=== PATIENT | female | born 1960 | race Hispanic/Latino ===

== ENCOUNTER 2016-04-25 15:24 | Emergency (ER) | payer OTHER, MEDICAID ==
[2016-04-25 15:39] VITALS: BP 138/75
[2016-04-25] MEDS ORDERED: CLEOCIN PO ONE (17:13)
[2016-04-25] MEDS ORDERED: BOOSTRIX IM ONE (17:13)
--- NOTE | 2016-04-25 17:13 | Emergency Department Report ---
ED Lower Extremity HPI - General Chief Complaint: Wound/Laceration Stated Complaint: INFECTED TOE/PARAPLEGIA Time Seen by Provider: 04/25/16 17:02 Source: patient, RN notes reviewed Mode of arrival: Wheelchair Limitations: Physical Limitation - History of Present Illness Initial Comments: This is a 56-year-old female, previously unknown to me. Has a history of paraplegia secondary to a T6 spinal cord injury. Presents to the ER with pain and swelling to the left great toe. She reports that she clipped her toenail a few days ago, and that recently banged her left great toe against a door. She has pain, swelling and redness, and a little bit of blackened area to the distal tip of the toe. No fevers or chills. No chest pain or shortness of breath. No other complaints. MD Complaint: other (left great toe injury) -: Sudden Injury: Toes: Left Type of Injury: blunt Place: home Severity: mild Context: direct blow - Related Data Previous Rx's Medication Instructions Recorded Last Taken Type Clindamycin [Clindamycin CAP] 300 mg PO Q6H #28 capsule 04/25/16 Unknown Rx Allergies Allergy/AdvReac Type Severity Reaction Status Date / Time prednisone AdvReac PSYCHOSIS Verified 04/25/16 15:32 ED Review of Systems ROS: Stated complaint: INFECTED TOE/PARAPLEGIA Other details as noted in HPI Constitutional: denies: fever, weakness Eyes: denies: eye discharge ENT: denies: epistaxis Respiratory: denies: cough Cardiovascular: denies: chest pain Gastrointestinal: denies: abdominal pain Genitourinary: as per HPI Musculoskeletal: as per HPI, arthralgia Skin: lesions Neurological: as per HPI Psychiatric: as per HPI ED Past Medical Hx - Medications Home Medications: Home Medications Medication Instructions Recorded Confirmed Last Taken Type Clindamycin [Clindamycin CAP] 300 mg PO Q6H #28 capsule 04/25/16 Unknown Rx ED Physical Exam - General Limitations: Physical Limitation General appearance: alert, in no apparent distress - Head Head exam: Present: atraumatic, normocephalic - Eye Eye exam: Present: normal appearance, EOMI. Absent: nystagmus - ENT ENT exam: Present: normal exam, normal orophraynx, mucous membranes moist, normal external ear exam - Neck Neck exam: Present: normal inspection, full ROM. Absent: tenderness, meningismus - Respiratory Respiratory exam: Present: normal lung sounds bilaterally. Absent: respiratory distress, wheezes, rales, rhonchi, stridor, chest wall tenderness - Cardiovascular Cardiovascular Exam: Present: regular rate, normal rhythm, normal heart sounds. Absent: bradycardia, tachycardia, irregular rhythm, systolic murmur, diastolic murmur, rubs, gallop - GI/Abdominal GI/Abdominal exam: Present: soft, normal bowel sounds. Absent: distended, tenderness, guarding, rebound, rigid, pulsatile mass - Extremities Exam Extremities exam: Present: normal capillary refill, other (patient is able to move the bilateral upper extremities. She is paraplegic in the bilateral lower extremities. The left great toe is somewhat red, and there is a tiny chip of blackened tissue. There is no streaking. The compartments are soft. 2+ pulses are noted in 4 extremities.). Absent: pedal edema, joint swelling, calf tenderness - Back Exam Back exam: Present: normal inspection. Absent: tenderness, CVA tenderness (R), CVA tenderness (L), muscle spasm, paraspinal tenderness, vertebral tenderness - Neurological Exam Neurological exam: Present: alert, oriented X3, motor sensory deficit (chronic weakness bilateral lower extremities) - Psychiatric Psychiatric exam: Present: normal affect, normal mood - Skin Skin exam: Present: rash, erythema ED Course Vital Signs 04/25/16 15:32 Temperature 98.2 F Pulse Rate 69 Respiratory 17 Rate Blood Pressure 138/75 O2 Sat by Pulse 100 Oximetry - Reevaluation(s) Reevaluation #1: 04/25/16 18:06 Differential diagnosis: Toe cellulitis, fracture, minimal skin necrosis assessment and plan: 56-year-old female status post mild blunt injury to left great toe. She is afebrile with reassuring vital signs. Compartments are soft. Patient is an appropriate candidate for oral antibiotic therapy, close outpatient follow-up with wound care, and Gen. surgery or orthopedic surgery. She is instructed to closely follow up with an outpatient child care specialist and/or orthopedic surgeon. Vital availability of clindamycin similar oral versus IV, therefore no medical indication acutely for IV loading with antibiotics. ED Lower Extremity MDM - Radiology Data Radiology results: image reviewed interpreted by me: Left great toe demonstrates DJD, possible tuft fracture Critical care attestation.: If time is entered above; I have spent that time in minutes in the direct care of this critically ill patient, excluding procedure time. ED Disposition Clinical Impression: Crush injury, toe Disposition: DISCHARGED TO HOME OR SELFCARE Is pt being admited?: No Does the pt Need Aspirin: No Condition: Stable Instructions: Cellulitis (ED) Additional Instructions: Take the antibiotic therapy as directed. Follow up within the next 72 hours with either a child care specialist, or orthopedic surgery or primary care. Dr. Bennett is a local child care specialist. He works at the local wound center. Wound care center can be contacted the following information: For more information, please call . Our Location We are located at: [address] [place] [address], [place] [address] Dr. Banda is a local orthopedic surgeon. Have the wound rechecked by medical records tech within the next 2-3 days. Return to the ER right away with new pain , worsened pain, migration of pain, worsened redness, pus, streaking, fevers or chills. Prescriptions: Clindamycin [Clindamycin CAP] 300 mg PO Q6H #28 capsule Referrals: PRIMARY CARE, [Primary Care Provider] - 3-5 Days DENISE VÁSQUEZ MD [Staff Physician] - 3-5 Days GERARDO BANDA MD [Staff Physician] - 3-5 Days
--- NOTE | 2016-04-26 10:38 | XRay Report ---
Left first toe: Trauma. Multiple views fail to identify any displacement or fracture. There is no significant swelling although a small degree of swelling is difficult to exclude. The bones appear slightly decreased in overall mineralization. Impression: Questionable minimal swelling. No acute finding otherwise noted.
== END 2016-04-25 18:22 | disposition home or self-care (01) ==
LOC: ED 15:24
DX: S97.112A Crushing injury of left great toe, initial encounter (principal); Z88.8 Allergy status to other drugs, medicaments and biological substances; Z79.2 Long term (current) use of antibiotics; W22.8XXA Striking against or struck by other objects, initial encounter; Y93.89 Activity, other specified; Y99.8 Other external cause status; Y92.099 Unspecified place in other non-institutional residence as the place of occurrence of the external cause
CPT/HCPCS: 90471; 90715